=== PATIENT | female | born 1985 | race Caucasian/White ===

== ENCOUNTER 2022-03-07 09:57 | Outpatient (REF) | payer OTHER, SELFPAY ==
[2022-03-07 10:48] LABS: Hematocrit 34.8 % (37.0-47.0); Hemoglobin 11.5 g/dl (12.0-16.0); Mean Corpuscular Hemoglobin 27.3 pg (27.0-33.0); Mean Corpuscular Volume 82.5 fL (80.0-98.0); Mean Platelet Volume 9.2 fL (9.4-12.3); Platelet Count 309 X10*3/uL (160-400); Red Blood Count 4.22 X10*6/uL (4.20-5.50); Red Cell Distribution Width 11.6 % (11.0-16.0)
[2022-03-07 11:12] LABS: Alanine Aminotransferase 9 U/L (0-31); Alkaline Phosphatase 61 U/L (39-117); Anion Gap 11 (12-20); Aspartate Amino Transferase 12 U/L (5-31); Bilirubin Direct 0.3 mg/dL (0.0-0.5); Bilirubin Total 0.7 mg/dL (0.0-1.0); Blood Urea Nitrogen 6 mg/dL (9-16); Calcium 8.8 mg/dL (8.4-10.2); Carbon Dioxide 27 mmol/L (22-29); Chloride 105 mmol/L (96-108); Estimated Glomerular Filt Rate > 60; Glucose Fasting 92 mg/dL (60-99); Sodium 139 mmol/L (135-145); Total Protein 6.5 g/dL (6.5-8.0)
[2022-03-07 11:36] LABS: Vitamin B12 353 pg/mL (200-900)
[2022-03-11 21:34] LABS: Alpha-Tocopherol 9.2 mg/L (5.7-19.9); Vitamin A 32 mcg/dL (38-98)
[2022-03-12 13:23] LABS: Vitamin D 25-OH, D2 6 ng/mL; Vitamin D 25-OH, D3 11 ng/mL; Vitamin D 25-OH, Total 17 ng/mL (30-100)
[2022-03-12 13:28] LABS: Vitamin B5 (Pantothenic Acid) <40 ng/mL (<275)
[2022-03-12 14:43] LABS: Vitamin B6 3.8 ng/mL (2.1-21.7)
[2022-03-12 18:09] LABS: Vitamin C 0.7 mg/dL (0.3-2.7)
[2022-03-13 14:18] LABS: Vitamin B1 8 nmol/L (8-30)
[2022-03-13 19:49] LABS: Nicotinamide <20 ng/mL; Vit B3 - Nicotinic Acid <20 ng/mL
[2022-03-16 13:34] LABS: Vitamin K1 174 pg/mL (130-1500)
== END 2022-03-07 09:58 | disposition home or self-care (01) ==
LOC: HO.LAB 09:57
PROVIDERS: PCP Hospitalist; Visit Provider Hospitalist
DX: Z00.00 Encounter for general adult medical examination without abnormal findings (principal); Z90.3 Acquired absence of stomach [part of]
CPT/HCPCS: 36415; 80053; 80076; 82180; 82248; 82306; 82607; 84207; 84425; 84443; 84446; 84590; 84591; 84597; 85027

== ENCOUNTER 2022-11-16 15:59 | Outpatient (AMB) | payer SELFPAY ==
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
[2022-11-16 16:04] VITALS: BP 128/74; PULSE 88; RESP 12; TEMP 36.6; O2SAT 98; BMI 41.6
== END 2022-11-16 17:00 ==
PROVIDERS: PCP Hospitalist; Visit Provider Nurse Practitioner Family
DX: M25.561 Pain in right knee (principal)
CPT/HCPCS: 99213

== ENCOUNTER 2024-05-31 06:57 | Outpatient (REF) | payer OTHER, SELFPAY ==
[2024-05-31 07:28] LABS: MANUAL DIFF FLAG NO
[2024-05-31 07:45] LABS: Basophils Percent Auto 0.5 % (0-2); Eosinophils Absolute Auto 0.1 X10*3/uL (0.0-0.4); Eosinophils Percent Auto 1.7 % (0-4); Hematocrit 36.2 % (37.0-47.0); Hemoglobin 12.2 g/dl (12.0-16.0); Imm Gran Abs Auto 0.01 X10*3/uL (0.00-0.03); Imm Gran Pct Auto 0.2 % (0.0-0.4); Lymphocytes Absolute Auto 2.3 X10*3/uL (1.2-4.9); Lymphocytes Percent Auto 40.7 % (20-40); Mean Corpuscular HGB Conc 33.7 g/dl (31.0-35.0); Mean Corpuscular Hemoglobin 27.1 pg (27.0-33.0); Mean Corpuscular Volume 80.3 fL (80.0-98.0); Mean Platelet Volume 8.7 fL (9.4-12.3); Monocytes Absolute Auto 0.5 X10*3/uL (0.1-1.2); Monocytes Percent Auto 9.4 % (2-11); Neutrophils Absolute Auto 2.7 x10*3/uL (2.0-8.3); Neutrophils Percent Auto 47.5 % (45-73); Platelet Count 275 X10*3/uL (160-400); Red Blood Count 4.51 X10*6/uL (4.20-5.50); Red Cell Distribution Width 11.8 % (11.0-16.0); White Blood Count 5.7 X10*3/uL (4.8-10.8)
[2024-05-31 07:46] LABS: Estimated Average Glucose 103 mg/dL; Hemoglobin A1c % 5.2 % (<6.0)
[2024-05-31 08:12] LABS: Alanine Aminotransferase 14 U/L (0-31); Alkaline Phosphatase 59 U/L (39-117); Anion Gap 8 (12-20); Aspartate Amino Transferase 17 U/L (5-31); Bilirubin Total 0.6 mg/dL (0.0-1.0); Blood Urea Nitrogen 5 mg/dL (9-16); Carbon Dioxide 24 mmol/L (22-29); Chloride 112 mmol/L (96-108); Cholesterol 177 mg/dL (<200); Estimated Glomerular Filt Rate > 60; Glucose Random 95 mg/dL (60-115); HDL Cholesterol 57 mg/dL (>40); LDL Cholesterol Calculated 104 mg/dL (<100); Sodium 140 mmol/L (135-145); Total Protein 6.8 g/dL (6.5-8.0); Triglycerides 80 mg/dL (<150)
[2024-05-31 08:27] LABS: Vitamin D 25-OH Total 17.5 ng/mL (>30)
[2024-05-31 08:33] LABS: Vitamin B12 264 pg/mL (200-900)
[2024-06-01 08:58] LABS: Lyme Abs Screen <0.90 index
== END 2024-05-31 06:58 | disposition home or self-care (01) ==
LOC: HO.LAB 06:57
PROVIDERS: Visit Provider Nurse Practitioner Family
DX: Z98.84 Bariatric surgery status (principal); E28.2 Polycystic ovarian syndrome; E55.9 Vitamin D deficiency, unspecified; R25.1 Tremor, unspecified; R73.03 Prediabetes
CPT/HCPCS: 36415; 80053; 80061; 82306; 82607; 83036; 85025; 86617; 86618

== ENCOUNTER 2025-03-07 08:33 | Outpatient (REF) | payer OTHER, SELFPAY ==
--- NOTE | ~2025-03-07 | XR_ITS ---
EXAMINATION: XR HAND, RIGHT CLINICAL INFORMATION: M79.641 - Pain in right hand COMPARISON: None available. TECHNIQUE: PA, lateral, and oblique views of the right hand. FINDINGS: There is a comminuted minimally displaced fracture of the distal tuft of the right second finger. No other fracture. Normal joint spaces. There is a soft tissue swelling over the distal second finger. No soft tissue foreign body seen. XR/XR hand RT min 3V IMPRESSION: Comminuted minimally displaced fracture of the distal tuft of the right second finger. Electronically signed by: Nadege Soto MD 03/07/2025 09:39 AM EST
== END 2025-03-07 08:34 | disposition home or self-care (01) ==
LOC: HO.HOSX 08:33
PROVIDERS: Visit Provider Orthopaedic Surgery
DX: S62.630D Displaced fracture of distal phalanx of right index finger, subsequent encounter for fracture with routine healing (principal); X58.XXXD Exposure to other specified factors, subsequent encounter
CPT/HCPCS: 73130

== ENCOUNTER 2025-03-07 08:33 | Outpatient (AMB) | payer OTHER, SELFPAY ==
--- OUTSIDE RECORDS SUMMARY | 2025-03-07 08:36 | XMS_ITS | Encounter Summary ---
Author Organization [facility] Address [address] [place] [phone] Phone Care Team Providers Care Heel Sander Name Role Phone Amanda Andrews FINANCE OFFICER Primary Care Provider Luda Interiano NEGATIVE STRIPPER Primary Care Provi josephine Encounter Details Date Type Department Care Team (Late st Contact Info) Description 08/23/2022 Procedure Pass [facility] - [facility] [address] [place] [address] Social History Tobacco Use Types Packs/Day Years Used Date Smoking Tobacco: Never Smokeless Tobacco: Never Alcohol Use Standard Drinks/Week Comments Yes 0 (1 standard drink = 0.6 oz pur e alcohol) rarely, socially Education Answer Date Recorded Are you interested in more education? Not on paco e 07/03/2022 Are you concerned about learning? Not on file 07/03/2022 No 07/03/2022 No 07/03/2022 Digital Access Answer Date Recorded No 08/01/2022 No 08/01/2022 Reliable internet access at home? Not on file 08/01/2022 Device with a working camera? Not on file Comments No Sex and Gender Information Value Date Recorded Sex Assigned at Female 08/24/2019 11:05 AM EDT Legal Sex Female 10:59 AM EDT Gender Identity Female 08/24/2019 11:05 AM EDT Sexual Orientation Straight 09/23/2019 12 :49 PM EDT documented as of this encounter Plan of Treatment Scheduled Procedures Name Priority Associated Diagnoses Date/Ti me COLONOSCOPY Diarrhea, unspecified type documented as of this encounter Visit Diagnoses Not on filedocumented in this encounter Care Teams Heel Sander Relationship Specialty Start Date End Date Amanda Andrews NP PCP - General Nurse Practitioner 08/23/22 01/17/23 Luda Interiano CNP [address] [place] [phone] [email or web address] PCP - General Nurse Practitioner 01/18/23 documented as of this encounter Additional Source Comments The information contained in this document represents components of the legal health record. It is not the complete legal health record.[facility]
--- OUTSIDE RECORDS SUMMARY | 2025-03-07 08:36 | XMS_ITS | Encounter Summary ---
Author Organization [facility] Address [address] [place] [phone] Phone Care Team Providers Care Retirement Manager Name Role Phone Amanda Andrews MIDDLEWARE CONSULTANT Primary Care Provider Luda Inteirano YARD MOTOR OPERATOR Primary Care Provi josephine Encounter Details Date Type Department Care Team (Late st Contact Info) Description 08/23/2022 Procedure Pass [facility] - CT [address] [place] [address] Social History Tobacco Use Types Packs/Day Years [...] on filedocumented in this encounter Care Teams Retirement Manager Relationship Specialty Start Date End Date Amanda Andrews NP PCP - General Nurse Practitioner 08/23/22 01/17/23 Luda Interiano CNP [address] [place] [phone] [email or web address] PCP - General Nurse Practitioner 01/18/23 documented as of this encounter Additional Source Comments The information contained in this document represents components of the legal health record. It is not the complete legal health record.[facility]
--- OUTSIDE RECORDS SUMMARY | 2025-03-07 08:36 | XMS_ITS | Encounter Summary ---
Author Organization [facility] Address [address] [place] [phone] Phone Care Team Providers Care Manufacturing Controls Engineer Name Role Phone Amanda Andrews GARBAGE PICK UP MAN Primary Care Provider Luda Interiano PHARMACY SPECIALIST Primary Care Provi josephine Encounter Details Date Type Department Care Team (Late st Contact Info) Description 08/23/2022 Procedure Pass [facility] - CT [address] [place] [address] Social History Tobacco Use Types Packs/Day Years [...] on filedocumented in this encounter Care Teams Manufacturing Controls Engineer Relationship Specialty Start Date End Date Amanda Andrews NP PCP - General Nurse Practitioner 08/23/22 01/17/23 Luda Interiano CNP [address] [place] [phone] [email or web address] PCP - General Nurse Practitioner 01/18/23 documented as of this encounter Additional Source Comments The information contained in this document represents components of the legal health record. It is not the complete legal health record.[facility]
--- OUTSIDE RECORDS SUMMARY | 2025-03-07 08:36 | XMS_ITS | Encounter Summary ---
Author Organization [facility] Address [address] [place] [phone] Phone Care Team Providers Care Site Auditor Name Role Phone Amanda Andrews FELT HAT INSPECTOR AND PACKER Primary Care Provider Luda Interiano LABORER/GRADE CHECK Primary Care Provi josephine Encounter Details Date Type Department Care Team (Late st Contact Info) Description 10/19/2022 Procedure Pass [facility] - MR [address] [place] [address] Social History Tobacco Use Types Packs/Day Years [...] on filedocumented in this encounter Care Teams Site Auditor Relationship Specialty Start Date End Date Amanda Andrews NP PCP - General Nurse Practitioner 08/23/22 01/17/23 Luda Interiano CNP [address] [place] [phone] [email or web address] PCP - General Nurse Practitioner 01/18/23 documented as of this encounter Additional Source Comments The information contained in this document represents components of the legal health record. It is not the complete legal health record.[facility]
--- OUTSIDE RECORDS SUMMARY | 2025-03-07 08:36 | XMS_ITS | Encounter Summary ---
Author Organization [facility] Address [address] [place] [address] Phone Care Team Providers Care Bridge Attacher Name Role Phone Laisha Luda Armenta CNP Primary Care Provi josephine Encounter Details Date Type Department Care Team (Late st Contact Info) Description 01/25/2023 Procedure Pass [facility] [address] [facility] [place] [id number] Social History Tobacco Use Types Packs/Day Years [...] on filedocumented in this encounter Care Teams Bridge Attacher Relationship Specialty Start Date End Date Luda Interiano CNP [address] [place] [phone] [email or web address] PCP - General Nurse Practitioner 01/18/23 documented as of this encounter Additional Source Comments The information contained in this document represents components of the legal health record. It is not the complete legal health record.[facility]
--- OUTSIDE RECORDS SUMMARY | 2025-03-07 08:36 | XMS_ITS | Encounter Summary ---
Author Organization [facility] Address [address] [place] [phone] Phone Care Team Providers Care Balance Wheel Motion Inspector Name Role Phone Amanda Andrews CONSTRUCTION OR LEAK GANG LABORER Primary Care Provider Luda Interiano PHOTOENGRAVING ETCHER APPRENTICE Primary Care Provi josephine Encounter Details Date Type Department Care Team (Late st Contact Info) Description 08/23/2022 Procedure Pass [facility] - CT [address] [place] [address] Social History Tobacco Use Types Packs/Day Years [...] on filedocumented in this encounter Care Teams Balance Wheel Motion Inspector Relationship Specialty Start Date End Date Amanda Andrews NP PCP - General Nurse Practitioner 08/23/22 01/17/23 Luda Interiano CNP [address] [place] [phone] [email or web address] PCP - General Nurse Practitioner 01/18/23 documented as of this encounter Additional Source Comments The information contained in this document represents components of the legal health record. It is not the complete legal health record.[facility]
--- OUTSIDE RECORDS SUMMARY | 2025-03-07 08:36 | XMS_ITS | Clinical Summary ---
Author Organization [facility] Address [address] [place] [address] Phone Care Team Providers Care In Mold Coater Name Role Phone Luda Interiano CNP Primary Care Provi josephine Allergies Active Allergy Reactions Criticality Noted Date Comments House Dust Other (See Comments) 04/26/2024 Oxycodone-Acetaminophen 10/03/2019 shaking Medications etonogestreL (NEXPLANON) 68 mg Impl Inject 68 mg into the skin Once every 3 years. 04/13/2023 Active therapeutic multivitamin tablet Take 1 tablet by mouth daily. Active Active Problems Problem Noted Date Diagnosed Date Irritable bowel syndrome with diarrhea Overview (04/21/2024): 04/21/24: Diagnosed with IBS >10 years ago, reports increase in episodes recently. Can have severe diarrhea episodes multiple times per week, knows some triggers (coffee). Assessment & Plan (04/21/2024 1:39 PM EST): No prior CLN. Referral to GI. Tremor of both hands 04/21/2024 Overview (04/21/2024): 04/21/24: - Bilateral hand tremors for the past 10 months (from elbow down to hands) - multiple episodes per week, triggered by fine motor movements like typing, cross stitching, cutting vegetables/cooking - no tremor at rest - episodes of shaking last 15-20 min, then followed by pain in bilateral hands that she rates as 8/10 in severity - no other neuro deficits - no family history of essential tremor - no gait impairment Assessment & Plan (04/21/2024 3:32 PM EST): Check CMP, TSH. Referral to neuro for further evaluation. Asthma 06/25/2023 Overview (06/25/2023): with resp infections Elevated parathyroid hormone 04/30/2023 Assessment & Plan (04/30/2023 12:33 PM EST): Previously elevated - repeat ordered today. H/O bariatric surgery 04/30/2023 Overview (04/30/2023): 04/30/23: s/p gastric sleeve 2019. Has not followed-up for this in >2 years. Assessment & Plan (04/30/2023 12:32 PM EST): Monitoring lab work ordered today. Annual physical exam 04/30/2023 Assessment & Plan (04/21/2024 3:35 PM EST): Counseled on routine health care concerns. Discussed heart healthy diet, exercise regimen, stress management. Recommend routine dental and vision care. Reviewed immunizations, declines flu, PCV today. Counseled on matters pertaining to personal safety and no red flags identified today. Counseled on routine sexual health and STIs, declines STI screening today. Pap up to date, per [facility] [facility]. Follow-up for next annual visit in 1 year or as needed. Assessment & Plan (04/30/2023 12:32 PM EST): Counseled on routine health care concerns. Discussed heart healthy diet, exercise regimen, stress management. Recommend routine dental and vision care. Reviewed immunizations, declines flu and covid vaccines. Counseled on matters pertaining to personal safety and no red flags identified today. Counseled on routine sexual health and STIs, declines STI screening today. Pap up to date per patient, [facility] in [place], [place]. Screening and monitoring labs ordered today. Follow-up for next annual visit in 1 year or as needed. Follow-up virtually to review lab results. PCOS (polycystic ovarian syndrome) 2023 Morbid obesity with BMI of 50.0-59.9, adult 01/08 Resolved Problems Problem Noted Date Diagnosed Date Resolved Date Acute bilateral knee pain 09/09/2022 Abdominal pain 02/23/2020 04/30/2023 Encounters Date Type Department Care Team Description 01/26/2025 8:30 AM EST Office Visit [facility] [address] [place] [address] Adithya Alfredo MD Essential tremor (Primary Dx); PCOS (polycystic ovarian syndrome) from Last 3 Months Immunizations Immunization Administration Dates Next Due HPV,quadrivalent 12/30/2009 INFLUENZA, SPLIT VIRUS, TRIV ALENT W/ PRESERVATIVE IM 01/03/2013,12/30/2009 Influenza Quadrivalent Prese rvative Free IM 02/06/2020(Deferred: Patient Refused) Tdap 08/23/2022,01/02/2020,12/30/2009 Family History Medical History Relation Comments Cancer Maternal Grandmother Diabetes Maternal Grandmother Hyperlipidemia Maternal Grandmother Hypertension Maternal Grandmother Diabetes Mother Hypertension Mother Obesity Mother Thyroid cancer Sister Follicular thyro id cancer Relation Status Comments Father Alive Maternal Grandmother Mother Alive Sister Alive Social History Tobacco Use Types Packs/Day Years Used Date Smoking Tobacco: Never Smokeless Tobacco: Never Tobacco Cessation:Counseling Given: Not Answered Alcohol Use Standard Drinks/Week Comments Yes 0 (1 standard drink = 0.6 oz pur e alcohol) rarely, socially Child or Family Care Answer Date Record ed Do you have problems with on e of the following making it difficult for you to work, study, or receive health care? No 2023 Education Answer Date Recorded Are you interested in help w ith more adult education (for example, completing high school, GED, job training, learning the Martiniquais language, technical skills, or developing parenting skills)? No 2023 Are you concerned about learning? Not on file 2023 No 2023 Yes 2023 Food Answer Date Recorded Within the past 6 months we worried whether our food would run out before we got money to buy more. Never True 2023 Within the past 6 months the food we bought just didn't last and we didn't have enough money to get more. Never True Residential Stability Answer Date Recor ded What is your housing situation today? I have bud costa 2023 How many times have you move d in the past 12 months? Zero (I did not move) 2023 Paying for Meds Answer Date Recorded Do you have trouble paying for medicines? No 2023 Paying Utility Bills Answer Date Record ed Do you have trouble paying your heating or elect ricity bill? No 2023 Transportation Answer Date Recorded Has the lack of transportati on kept you from medical appointments or from getting medications? No 2023 Unemployment Answer Date Recorded Are you currently unemployed or working on a part-time or temporary basis, and looking for work? No 2023 Digital Access Answer Date Recorded No 2023 Yes 2023 Do you have reliable internet access at home? Ye s 2023 Do you have a device (e.g., phone, tablet, computer) with a working camera? Yes 2023 Intimate Partner Violence Answer Date R ecorded Are you denied basic needs s uch as food, clothing, or medical care? No 04/21/2024 In the past 12 months have y ou been in a relationship with a person who hurts, threatens, or tries to control you? No 04/21/2024 Are you denied basic needs s uch as food, clothing, or medical care? No 04/21/2024 In the past 12 months have y ou been in a relationship with a person who hurts, threatens, or tries to control you? No 04/21/2024 Comments No Sex and Gender Information Value Date Recorded Sex Assigned at Female 08/24/2019 11:05 AM EDT Legal Sex Female 10:59 AM EDT Gender Identity Female 08/24/2019 11:05 AM EDT Sexual Orientation Straight 09/23/2019 12 :49 PM EDT Last Filed Vital Signs Vital Sign Reading Time Taken Comments Blood Pressure 99/69 01/26/2025 8:23 AM EST Pulse 83 01/26/2025 8:23 AM EST Temperature 36.7 C (98.1 F) 01/26/2025 8:23 AM EST Respiratory Rate 14 10/05/2024 10:4 5 AM EDT Oxygen Saturation 98% 01/26/2025 8:23 AM EST Inhaled Oxygen Concentration - - Weight 120.4 kg (265 lb 6.4 oz) 01/26/2025 8:23 AM EST Height 165.6 cm (5' 5.2 ) 01/26/2025 8:23 AM EST Body Mass Index 43.9 01/26/2025 8:23 AM EST Plan of Treatment Scheduled Procedures Name Priority Associated Diagnoses Date/Ti me COLONOSCOPY Diarrhea, unspecified type Health Maintenance Due Date Last Done Comments HEPATITIS C SCREENING 2005 HIV ONE-TIME SCREENING (18-6 5 YEARS) 2005 PNEUMOCOCCAL VACCINES (0-49 years) (1 of 2 - PCV) 2006 PAP SMEAR 2008 INFLUENZA VACCINE (#1) 2024 3, 12/30/2009 COVID-19 VACCINE (3 - 2024-2 6 season) 2024 10/24/2020, 10/03/2020 DEPRESSION SCREENING 04/21/2025 04/21/2024 SCREENING FOR DIABETES 01/27/2028 5, 2023 Adult Td,Tdap Booster 08/23/2032 08/23/2022 , 01/02/2020, 12/30/2009 SMOKING STATUS SCREENING (On ce After 26 Yrs) Completed 01/26/2025 HEPATITIS A VACCINES Aged Out No long er eligible based on patient's age to complete this topic HIB VACCINES Aged Out No longer eligi ble based on patient's age to complete this topic MENINGOCOCCAL VACCINES (ACWY) Aged Out No longer eligible based on patient's age to complete this topic MENINGOCOCCAL VACCINES (B) Aged Out N o longer eligible based on patient's age to complete this topic Medical Devices Implanted Type Area Occupational Health And Safety Officer Device Identifier Shelf Expiration Date Model / Serial / Lot Control Device Control Device Left: Arm Procedures Procedure Name Priority Date/Time Associated Diagnosis Comments THYROID STIMULATING HORMONE (TSH) Routine 01/26/2025 8:55 AM EST Essential tremor PCOS (polycystic ovarian syndrome) PARATHYROID HORMONE (PTH) Routine 01/26/2025 8:55 AM EST Essential tremor PCOS (polycystic ovarian syndrome) HEMOGLOBIN A1C Routine 01/26/2025 8:55 AM EST PCOS (polycystic ovarian syndrome) from Last 3 Months Results * Thyroid Stimulating Hormone (TSH) (01/26/2025 8:55 AM EST) TSH 2.52 0.40 - 5.00 uIU/mL 01/26/2025 9:54 AM EST [facility] Blood (Blood) Venipuncture / Unknown 01/26/2025 8:55 AM EST 01/26/2025 8:55 AM EST Adithya Alfredo MD LAB BLOOD BKR ORDERABLES Final Result Performing Organization Address City/[facility]/ZIP Co de Phone Number [address] [phone] * (ABNORMAL) Parathyroid Hormone (PTH) (01/26/2025 8:55 AM EST) Parathyroid Hormone (PTH) 68(H) 15 - 65 pg/mL 01/26/2025 10:56 AM EST [facility] Blood (Blood) Venipuncture / Unknown 01/26/2025 8:55 AM EST 01/26/2025 8:55 AM EST Adithya Alfredo MD LAB BLOOD BKR ORDERABLES Final Result Performing Organization Address City/[facility]/ZIP Co de Phone Number [address] [phone] * Hemoglobin A1c (01/26/2025 8:55 AM EST) Hemoglobin A1c 5.6 4.3 - 5.6 % 01/26/2025 9:17 AM EST [facility] Calculated Mean Blood Glucose 114 mg/dL 01/26/2025 9:17 AM EST [facility] Comment:There is no [facility] normal range for the Estimated Average Glucose (EAG). However, a HbA1c of 5.6% (upper limit of normal) represents an EAG of 114 mg/dL. The diagnostic HbA1c level for diabetes is greater than or equal to 6.5%, which represents an EAG greater than or equal to 140 mg/dL. Blood (Blood) Venipuncture / Unknown 01/26/2025 8:55 AM EST 01/26/2025 8:55 AM EST us Adithya Alfredo MD LAB BLOOD BKR ORDERABLES Final Result [address] [phone] from Last 3 Months Insurance [employer] B[employer]EF[employer]MINISTRAT[employer]ENEF[employer]MIN[employer]AT[employer] Member Subscriber Plan / Payer (Ef fective 2024-Present) Name:Fidelina Pascal Relation to Subscriber:Spouse Name:MIR PASCAL Date of :1986 (Home) Address: [address] [place] [address] Payer ID:[id number] (NAIC) Type:PPO Address: [place] [phone] [employer]EF[employer]MINISTRAT[employer] Member Subscriber Plan / Payer (Ef fective 2024-Present) Name:Fidelina Pascal Relation to Subscriber:Spouse Name:MIR PASCAL Tania Date of :1986 (Home) Address: [address] [place] [id number] Payer ID:[id number] (NAIC) Type:PPO Address: [place] [phone] [employer] Advance Directives For more information, please contact: [phone] (9AM - 5PM [facility], Wednesday-Wednesday) Documents on File Type Date Recorded Patient Bight Maker Expl anation Healthcare Proxy 02/16/2020 1:17 PM Care Teams In Mold Coater Relationship Specialty Start Date End Date Luda Interiano CNP [address] [place] [phone] [email or web address] PCP - General Nurse Practitioner 01/18/23 Additional Source Comments The information contained in this document represents components of the legal health record. It is not the complete legal health record.[facility]
--- OUTSIDE RECORDS SUMMARY | 2025-03-07 08:36 | XMS_ITS | Encounter Summary ---
Author Organization [facility] Address [address] [place] [address] Phone Care Team Providers Care Manager System Name Role Phone Luda Interiano CNP Primary Care Provi josephine Encounter Details Date Type Department Care Team (Late st Contact Info) Description 02/22/2023 Procedure Pass MRI, [facility] - [address], [address] [place], [place] [id number] Social History Tobacco Use Types Packs/Day Years [...] on filedocumented in this encounter Care Teams Manager System Relationship Specialty Start Date End Date Luda Interiano CNP [address] [place] [phone] [email or web address] PCP - General Nurse Practitioner 01/18/23 documented as of this encounter Additional Source Comments The information contained in this document represents components of the legal health record. It is not the complete legal health record.[facility]
--- OUTSIDE RECORDS SUMMARY | 2025-03-07 08:37 | XMS_ITS | Encounter Summary ---
Author Organization [facility] Address [address] [place] [phone] Phone Care Team Providers Care Quality Consultant Name Role Phone Amanda Andrews DRAFTING ENGINEER Primary Care Provider Luda Interiano CHEESE MAKER Primary Care Provi josephine Encounter Details Date Type Department Care Team (Late st Contact Info) Description 08/23/2022 Procedure Pass [facility] - [place] [address] [place] [address] Social History Tobacco Use Types Packs/Day Years [...] on filedocumented in this encounter Care Teams Quality Consultant Relationship Specialty Start Date End Date Amanda Andrews NP PCP - General Nurse Practitioner 08/23/22 01/17/23 Luda Interiano CNP [address] [place] [phone] [email or web address] PCP - General Nurse Practitioner 01/18/23 documented as of this encounter Additional Source Comments The information contained in this document represents components of the legal health record. It is not the complete legal health record.[facility]
--- OUTSIDE RECORDS SUMMARY | 2025-03-07 08:37 | XMS_ITS | Clinical Summary ---
Author Organization [facility] Address [address] [place] [address] Care Team Providers Care Sports Athletic Trainer Name Role Phone Unavailable Primary Care Provider Unavailabl e Social History Tobacco Use Types Packs/Day Years Used Date Smoking Tobacco: Never Assessed Comments Unknown Sex and Gender Information Value Date Recorded Sex Assigned at Not on file Legal Sex Female 10:17 PM EDT Gender Identity Not on file Sexual Orientation Not on file Plan of Treatment Not on file
--- OUTSIDE RECORDS SUMMARY | 2025-03-07 08:37 | XMS_ITS | Encounter Summary ---
Author Organization [facility] Address [address] [place] [address] Phone Care Team Providers Care Sheetfed Press Operator Name Role Phone Luda Interiano CNP Primary Care Provi josephine Encounter Details Date Type Department Care Team (Late st Contact Info) Description 09/22/2024 Procedure Pass [facility] - MR [address] [place] [address] Social History Tobacco Use Types Packs/Day Years [...] high school, GED, job training, learning the Cymro language, technical skills, or developing parenting skills)? [...] Diagnoses Not on filedocumented in this encounter Additional Health Concerns Assessment Noted Time PHQ-2 Depression Total Score: 2 04/21/19 25 12:50 PM EST documented as of this encounter Care Teams Sheetfed Press Operator Relationship Specialty Start Date End Date Luda Interiano CNP [address] [place] [phone] [email or web address] PCP - General Nurse Practitioner 01/18/23 documented as of this encounter Additional Source Comments The information contained in this document represents components of the legal health record. It is not the complete legal health record.[facility]
--- OUTSIDE RECORDS SUMMARY | 2025-03-07 08:37 | XMS_ITS | Encounter Summary ---
Author Organization [facility] Address [address] [place] [address] Phone Care Team Providers Care Blood Bank Technologist Name Role Phone Kendra Quiñonez MD Primary Care Provide r Amanda Andrews SPECIAL MAKEUP FX ARTIST INSTRUCTOR Primary Care Provider Luda Interiano PROJECT SPECIALIST Primary Care Provi josephine Encounter Details Date Type Department Care Team (Late st Contact Info) Description 02/05/2020 Procedure Pass [facility] Periop [address] [place] [address] Social History Tobacco Use Types Packs/Day Years Used Date Smoking Tobacco: Never Smokeless Tobacco: Never Alcohol Use Standard Drinks/Week Comments Yes 0 (1 standard drink = 0.6 oz pur e alcohol) rarely, socially Comments No Sex and Gender Information Value [...] on filedocumented in this encounter Care Teams Blood Bank Technologist Relationship Specialty Start Date End Date Kendra Quiñonez MD [address] [place] [address] PCP - General Internal Medicine 08/24/19 08/22/22 Amanda Andrews NP [address] [place] [address] PCP - General Nurse Practitioner 08/23/22 01/17/23 Luda Interiano CNP [address] [place] [phone] [email or web address] PCP - General Nurse Practitioner 01/18/23 documented as of this encounter Additional Source Comments The information contained in this document represents components of the legal health record. It is not the complete legal health record.[facility]
--- OUTSIDE RECORDS SUMMARY | 2025-03-07 08:37 | XMS_ITS | Encounter Summary ---
Author Organization [facility] Address [address] [place] [address] Phone Care Team Providers Care Flea Market Seller Name Role Phone Kendra Quiñonez MD Primary Care Provide r Amanda Andrews MACHINE REPAIRER MAINTENANCE Primary Care Provider Luda Interiano MASS SPEC Primary Care Provi josephine Encounter Details Date Type Department Care Team (Late st Contact Info) Description 02/22/2020 Procedure Pass [facility] [address] [place] [address] Social History Tobacco Use Types Packs/Day Years [...] PM EDT documented as of this encounter Last Filed Vital Signs Vital Sign Reading Time Taken Comments Blood Pressure - - Pulse - - Temperature - - Respiratory Rate - - Oxygen Saturation - - Inhaled Oxygen Concentration - - Weight 144.7 kg (319 lb) 02/23/2020 9:33 AM EST Height - - Body Mass Index 53.08 02/05/2020 6:34 AM EST documented in this encounter Plan of Treatment Scheduled Procedures Name Priority Associated Diagnoses Date/Ti me COLONOSCOPY Diarrhea, unspecified type documented as of this encounter Visit Diagnoses Not on filedocumented in this encounter Care Teams Flea Market Seller Relationship Specialty Start Date End Date Kendra Quiñonez MD [address] [place] [address] PCP - General Internal Medicine 08/24/19 08/22/22 Amanda Andrews NP [address] [place] [address] PCP - General Nurse Practitioner 08/23/22 01/17/23 Luda Interiano CNP [address] [place] [phone] [email or web address] PCP - General Nurse Practitioner 01/18/23 documented as of this encounter Additional Source Comments The information contained in this document represents components of the legal health record. It is not the complete legal health record.[facility]
--- OUTSIDE RECORDS SUMMARY | 2025-03-07 08:37 | XMS_ITS | Clinical Summary ---
Author Organization [facility] Address [address] [place] [address] Care Team Providers Care Personnel Interviewer Name Role Phone Erica Valiente Primary Care Provider Unavailabl e Allergies Active Allergy Reactions Criticality Noted Date Comments Perloxx 07/16/2015 Active Problems Problem Noted Date Diagnosed Date Chest pain 07/17/2015 Obesity 07/17/2015 Social History Tobacco Use Types Packs/Day Years Used Date Smoking Tobacco: Never Assessed Comments:Smoking Status:Non- smoker Comments Unknown Sex and Gender Information Value Date Recorded Sex Assigned at Not on file Legal Sex Female 5:05 PM EDT Gender Identity Not on file Sexual Orientation Not on file Last Filed Vital Signs Vital Sign Reading Time Taken Comments Blood Pressure 110/88 07/16/2015 8:09 PM EDT Pulse 94 07/16/2015 8:09 PM EDT Temperature 36.6 C (97.8 F) 07/16/2015 8:09 PM EDT Respiratory Rate - - Oxygen Saturation 98% 07/16/2015 8:09 PM EDT Inhaled Oxygen Concentration - - Weight 128 kg (283 lb 0.1 oz) 07/16/2015 8:09 PM EDT Height - - Body Mass Index - - Plan of Treatment Health Maintenance Due Date Last Done Comments Hepatitis C Screening 1987 Pap Smear 2003 DTaP/Tdap/Td (1 - Tdap) 2005 Hep B (1 of 3 - 19+ 3-dose series) 2006 COVID-19 Vaccine (2024-2 6 season) 2024 Influenza (#1) 2024 Zoster (Shingrix) (1 of 2) 2037 HPV Vaccine (No Doses Required) Completed Hep A Aged Out No longer eligi ble based on patient's age to complete this topic Hib Aged Out No longer eligi ble based on patient's age to complete this topic Meningococcal ACWY Aged Out No longer eligible based on patient's age to complete this topic Pneumococcal Aged Out No longer eligi ble based on patient's age to complete this topic Care Teams Personnel Interviewer Relationship Specialty Start Date End Date Erica Valiente PCP - General 10/12/22
--- OUTSIDE RECORDS SUMMARY | 2025-03-07 08:37 | XMS_ITS | Encounter Summary ---
Author Organization [facility] Address [address] [place] [address] Phone Care Team Providers Care Data Architect Manager Name Role Phone Laisha Luda Armenta CNP Primary Care Provi [facility] Encounter Details Date Type Department Care Team (Late st Contact Info) Description 07/02/2023 Procedure Pass [facility] [address] [place], [place] [id number] Social History Tobacco Use Types Packs/Day Years [...] high school, GED, job training, learning the Estonian language, technical skills, or developing parenting skills)? [...] as food, clothing, or medical care? No 06/28/2023 In the past 12 months have y ou been in a relationship with a person who hurts, threatens, or tries to control you? No 06/28/2023 Are you denied basic needs s uch as food, clothing, or medical care? No 06/28/2023 In the past 12 months have y ou been in a relationship with a person who hurts, threatens, or tries to control you? No 06/28/2023 Comments No Sex and Gender Information Value [...] Assessment Noted Time PHQ-2 Depression Total Score: 1 04/29/19 24 12:52 PM EST documented as of this encounter Care Teams Data Architect Manager Relationship Specialty Start Date End Date Luda Interiano CNP [address] [place] [phone] [email or web address] PCP - General Nurse Practitioner 01/18/23 documented as of this encounter Additional Source Comments The information contained in this document represents components of the legal health record. It is not the complete legal health record.[facility]
--- OUTSIDE RECORDS SUMMARY | 2025-03-07 08:37 | XMS_ITS | Encounter Summary ---
Author Organization [facility] Address [address] [place] [address] Phone Care Team Providers Care Shed Boss Name Role Phone Laisha Luda Armenta CNP Primary Care [facility] Encounter Details Date Type Department Care Team (Late st Contact Info) Description 05/28/2023 Procedure Pass [facility] [address] [place], [place] [id number] Social History Tobacco Use Types Packs/Day Years [...] high school, GED, job training, learning the Azeri language, technical skills, or developing parenting skills)? [...] your housing situation today? I have bud sing 2023 How many times have you move [...] computer) with a working camera? Yes 2023 Comments No Sex and Gender Information Value [...] documented as of this encounter Care Teams Shed Boss Relationship Specialty Start Date End Date Luda Interiano CNP [address] [place] [phone] PCP - General Nurse Practitioner 01/18/23 documented as of this encounter Additional Source Comments The information contained in this document represents components of the legal health record. It is not the complete legal health record.[facility]
--- OUTSIDE RECORDS SUMMARY | 2025-03-07 08:37 | XMS_ITS | Encounter Summary ---
Author Organization [facility] Address [address] [place] [address] Phone Care Team Providers Care Sail Maker Name Role Phone Luda Interiano CNP Primary Care [facility] Encounter Details Date Type Department Care Team (Late st Contact Info) Description 05/27/[address] [facility] Orthopaedic Surgery [facility] [address], [address] [place] [address] Karen Rodriguez [place] Social History Tobacco Use Types Packs/Day Years [...] high school, GED, job training, learning the Greek language, technical skills, or developing parenting skills)? [...] documented as of this encounter Care Teams Sail Maker Relationship Specialty Start Date End Date Luda Interiano CNP [address] [place] [phone] PCP - General Nurse Practitioner 01/18/23 documented as of this encounter Additional Source Comments The information contained in this document represents components of the legal health record. It is not the complete legal health record.[facility]
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
[2025-03-07 09:16] VITALS: BMI 44.8
== END 2025-03-07 10:03 | disposition home or self-care (01) ==
LOC: HO.HOS 08:34
PROVIDERS: Visit Provider Orthopaedic Surgery
DX: S62.630B Displaced fracture of distal phalanx of right index finger, initial encounter for open fracture (principal)
CPT/HCPCS: 99203

== ENCOUNTER → 2025-03-07 09:30 | Outpatient (BNV) | payer OTHER, SELFPAY | PROVIDERS: Visit Provider Radiology Diagnostic Radiology | DX: S62.630A Displaced fracture of distal phalanx of right index finger, initial encounter for closed fracture (principal) | CPT/HCPCS: 73130 ==